=== PATIENT | male | born 2005 | race Caucasian/White ===

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

== ENCOUNTER 2023-02-04 03:03 | Emergency (ER) | payer OTHER, SELFPAY ==
[2023-02-04 01:30] VITALS: BP 147/76; PULSE 83; RESP 20; TEMP 36.8; O2SAT 97; BMI 26.3
[2023-02-04 01:37] LABS: Hematocrit 40.5 % (42.0-52.0); Hemoglobin 14.7 g/dl (14.0-18.0); Mean Corpuscular HGB Conc 36.3 g/dl (31.0-36.0); Mean Corpuscular Hemoglobin 31.2 pg (27.0-33.0); Mean Platelet Volume 10.3 fL (9.4-12.4); Platelet Count 253 X10*3/uL (160-400); Red Blood Count 4.71 X10*6/uL (4.60-5.80); Red Cell Distribution Width 11.2 % (11.0-16.0); White Blood Count 7.9 X10*3/uL (4.8-10.8)
--- NOTE | 2023-02-04 01:42 | MHC.EDTECH ---
PATIENT BLOOD DRAWN AND SENT TO LAB ,URINE SAMPLE COLLECTED AND LENT TO LAB .
[2023-02-04 01:44] LABS: Appearance Urine Clear; Color Urine Yellow; Glucose Urine UA Negative (Negative); Leukocyte Esterase Urine Negative (Negative); Nitrite Urine Negative (Negative); Urine Blood Negative (Negative); Urine Ketones Negative (Negative); Urine Protein Negative (Neg-Trace)
[2023-02-04 01:49] LABS: Bacteria Urine None Seen (None Seen); Hyaline Casts Urine 0-2 /LPF (0-2); RBC Urine 0-2 /HPF (0-2); Squamous Epithelial Cell Urine 0-2 /HPF (0-2); WBC Urine 0-5 /HPF (0-5)
[2023-02-04 01:52] LABS: Alanine Aminotransferase 24 U/L (0-40); Albumin Level 4.8 g/dL (3.5-5.0); Alkaline Phosphatase 39 U/L (39-117); Anion Gap 14 (12-20); Aspartate Amino Transferase 20 U/L (5-37); Bilirubin Total 0.3 mg/dL (0.0-1.0); Blood Urea Nitrogen 13 mg/dL (9-16); Calcium 10.3 mg/dL (8.4-10.2); Carbon Dioxide 26 mmol/L (22-29); Chloride 104 mmol/L (96-108); Creatinine Clr Calc Pharmacy 151.8; Estimated Glomerular Filt Rate > 60; Glucose Random 108 mg/dL (60-115); Lipase 15 U/L (8-78); Potassium 4.2 mmol/L (3.3-5.1); Sodium 140 mmol/L (135-145); Total Protein 7.8 g/dL (6.5-8.0)
[2023-02-04 03:22] VITALS: BP 143/74; PULSE 68; RESP 16; TEMP 37.1; O2SAT 98
--- NOTE | 2023-02-04 03:41 | ED.GENADULT ---
HPI - General Adult General Chief complaint: Headache Stated complaint: Nausea Time Seen by Provider: 02/04/23 03:27 Source: patient Mode of arrival: ambulatory Limitations: no limitations History of Present Illness HPI narrative: 17-year-old male with history of psoriasis presents with acute neck pain, dizziness, headache nausea. Patient coughed or sneezed any developed acute symptoms that were described as severe. Symptoms are worse with movement. He has never had symptoms like this before. The symptoms do not radiate. Denies any photo or phonophobia. The symptoms have improved on their own and are nearly gone at this time. There is no prior treatment. Mother believes the patient panicked. Related Data Previous Rx's Medication Instructions Recorded ketoconazole 2 % shampoo 1 appl topical 3XW #120 mL 07/14/21 terbinafine HCl 1 % topical cream 1 appl topical BID #30 grams 07/14/21 ondansetron 4 mg disintegrating 4 mg PO Q8H PRN nausea and 02/04/23 tablet vomiting #10 tabs Allergies Allergy/AdvReac Type Severity Reaction Status Date / Time acetaminophen Allergy Severe Vomiting Verified 03/01/22 23:35 Review of Systems Review of Systems: CONSTITUTIONAL: Denies weight loss, fever and chills. HEENT: Denies changes in vision and hearing. RESPIRATORY: Denies SOB and cough. CV: Denies palpitations no CP. GI: Denies abdominal pain, +nausea, -vomiting and diarrhea. : Denies dysuria and urinary frequency. MSK: + myalgia and joint pain. SKIN: Denies rash and pruritus. NEUROLOGICAL: + headache and - syncope. PSYCHIATRIC: Denies recent changes in mood. Denies anxiety and depression. All other ROS are negative unless in [facility]PI [facility] Social History Social History Advance Directives: No Physical Exam ED Vital Signs: Vital Signs - 24 hr 02/04/23 01:30 02/04/23 03:22 Temperature 98.3 F 98.7 F Pulse Rate 83 68 Respiratory Rate 20 16 Blood Pressure 147/76 H 143/74 H Pulse Oximetry 97 98 Oxygen Delivery Method Room Air Room Air BMI result Body Mass Index 26.3 GEN: Well developed, no acute distress, alert, oriented HEENT: Normocephalic, atraumatic, normal external ears, nose appears normal, no oropharyngeal edema or exudates Eyes: Normal to appearance Neck: Supple, no lymphadenopathy Respiratory: Talks in complete sentences, no respiratory distress, clear to auscultation bilaterally Cardiovascular: Regular rate and rhythm, no murmurs rubs or gallops Abdomen: Soft, nontender, nondistended, no guarding, no rebound Back: No CVA tenderness Extremities: No clubbing cyanosis or edema Neurologic: No focal neurologic deficits, cranial nerves 2-12 intact, strength is 5/5 bilaterally Skin: No rash Medical Decision Making Medical Decision Making [facility] Narrative: 17-year-old male with history of psoriasis presents with headache, neck pain, dizziness, nausea. Examination is benign. Doubt subarachnoid hemorrhage, subdural hematoma, meningitis. Is most likely acute muscle spasm which is already relieved itself. He will discharge the patient. I have reviewed his lab testing. There are no significant abnormalities. He can follow-up on an as-needed basis. Will take Motrin as needed. Differential diagnosis includes sprain, strain, spasm. There is no emergent indication for imaging at this time. Differential Diagnosis Differential Diagnoses: The differential diagnosis associated with the presentation includes (See above) Lab Data [facility] Lab Attestation statement: I reviewed the patient's lab results. 02/04/23 01:31 02/04/23 01:31 Labs: Lab Results 02/04/23 02/04/23 Range/Units 01:31 01:36 WBC 7.9 (4.8-10.8) X10*3/uL RBC 4.71 (4.60-5.80) X10*6/uL Hgb 14.7 (14.0-18.0) g/dl Hct 40.5 L (42.0-52.0) % MCV 86.0 (80.0-98.0) fL MCH 31.2 (27.0-33.0) pg MCHC 36.3 H (31.0-36.0) g/dl RDW 11.2 (11.0-16.0) % Plt Count 253 (160-400) X10*3/uL MPV 10.3 (9.4-12.4) fL Absolute Nucleated RBC 0.000 (0.0-0.012) X10*3/uL Nucleated RBC % (auto) 0.0 (0.0-0.2) /100WBC Sodium 140 (135-145) mmol/L Potassium 4.2 (3.3-5.1) mmol/L Chloride 104 (96-108) mmol/L Carbon Dioxide 26 (22-29) mmol/L Anion Gap 14 (12-20) BUN 13 (9-16) mg/dL Creatinine 0.91 (0.5-1.4) mg/dL Estim Creat Clear Calc 151.8 Estimated GFR > 60 Random Glucose 108 (60-115) mg/dL Calcium 10.3 H (8.4-10.2) mg/dL Total Bilirubin 0.3 (0.0-1.0) mg/dL AST 20 (5-37) U/L ALT 24 (0-40) U/L Alkaline Phosphatase 39 (39-117) U/L Total Protein 7.8 (6.5-8.0) g/dL Albumin 4.8 (3.5-5.0) g/dL Lipase 15 (8-78) U/L Urine Color Yellow Urine Appearance Clear Urine pH 7.0 (5.0-9.0) Ur Specific [place] 1.010 (1.005-1.025) Urine Protein Negative (Neg-Trace) mg/dL Urine Glucose (UA) Negative (Negative) mg/dL Urine Ketones Negative (Negative) mg/dL Urine Blood Negative (Negative) Urine Nitrite Negative (Negative) Ur Leukocyte Esterase Negative (Negative) Urine RBC 0-2 (0-2) /HPF Urine WBC 0-5 (0-5) /HPF Ur Squamous Epith Cells 0-2 (0-2) /HPF Urine Bacteria None Seen (None Seen) Hyaline Casts 0-2 (0-2) /LPF Prescription Management I considered prescription management with: Pain Medication Discharge Plan Discharge Clinical Impression: Headache, Acute neck pain, Nausea Patient Disposition: Home, Self-Care Instructions: Acute Headache (ED), Acute Nausea and Vomiting (ED), Neck Pain (ED) Prescriptions: New ondansetron 4 mg tablet,disintegrating 4 mg PO Q8H PRN (Reason: nausea and vomiting) Qty: 10 0RF No Action terbinafine HCl 1 % cream 1 appl topical BID Qty: 30 1RF ketoconazole 2 % shampoo 1 appl topical 3XW Qty: 120 0RF Referrals: Natalio Gao MD [Primary Care Provider] - 1 week (if needed)
== END 2023-02-04 04:20 | disposition home or self-care (01) ==
PROVIDERS: Emergency Provider Emergency Medicine; PCP Internal Medicine
DX: R51.9 Headache, unspecified (principal); M54.2 Cervicalgia; R11.0 Nausea
CPT/HCPCS: 36415; 80053; 81001; 83690; 85027; 99283; 99284

== ENCOUNTER 2023-02-24 22:50 | Emergency (ER) | payer OTHER, SELFPAY ==
--- NOTE | 2023-02-24 | ECG_ITS ---
Test Reason : CP Blood Pressure : / mmHG Vent. Rate : 086 BPM Atrial Rate : 086 BPM P-R Int : 142 ms QRS Dur : 082 ms QT Int : 366 ms P-R-T Axes : 069 075 031 degrees QTc Int : 437 ms Normal sinus rhythm Normal ECG No previous ECGs available Referred By: Generic ED Physician Electronically Signed By:MARIXA BANERJEE MD
[2023-02-24 22:58] VITALS: BP 133/80; PULSE 82; RESP 16; TEMP 36.9; O2SAT 98; BMI 25.7
== END 2023-02-25 02:31 | disposition left against medical advice (07) ==
PROVIDERS: Emergency Provider Emergency Medicine; PCP Internal Medicine
DX: R07.89 Other chest pain (principal)
CPT/HCPCS: 93005; 99283

== ENCOUNTER 2023-11-18 19:42 | Emergency (ER) | payer OTHER, SELFPAY ==
--- NOTE | ~2023-11-18 | XR_ITS ---
EXAMINATION: XR CHEST CLINICAL INFORMATION: Fever. COMPARISON: None available. TECHNIQUE: Frontal view of the chest was obtained. FINDINGS: The cardiomediastinal silhouette is normal. There is a medial right lung base opacity/infiltrate. The lungs are otherwise clear. There are no significant pleural effusions. The bony structures and soft tissues are unremarkable. XR/XR chest 1V IMPRESSION: Medial right lung base opacity/infiltrate. Pneumonia is suspected.
[2023-11-18 20:09] VITALS: BP 144/71; PULSE 141; RESP 20; TEMP 39.3; O2SAT 96; BMI 25.0
--- NOTE | 2023-11-18 20:11 | ED_ITS ---
HPI - URI/Sore Throat General Chief Complaint: Upper Respiratory Symptoms Stated Complaint: fever 2days/headache/nauseous Time Seen by Provider: 11/18/23 23:11 Related Data Previous Rx's ?Medication ?Instructions ?Recorded ketoconazole 2 % shampoo 1 appl topical 3XW #120 mL 07/14/21 terbinafine HCl 1 % topical cream 1 appl topical BID #30 grams 07/14/21 ondansetron 4 mg disintegrating 4 mg PO Q8H PRN nausea and 02/04/23 tablet vomiting #10 tabs azithromycin 250 mg tablet 250 mg PO DAILY 4 days #4 tabs 11/19/23 benzonatate 100 mg capsule 100 mg PO TID PRN cough #14 caps 11/19/23 cefuroxime axetil 500 mg tablet 500 mg PO BID #14 tabs 11/19/23 ibuprofen 600 mg tablet 600 mg PO QID PRN fever or pain 11/19/23 #20 tabs Allergies Allergy/AdvReac Type Severity Reaction Status Date / Time acetaminophen Allergy Severe Vomiting Verified 11/18/23 20:14 [facility] Social History Social History Smoked in Last 30 Days: No Use of substances other than those prescribed or required for medical reasons: No Advance Directives: No Advance Directives Information Provided: Yes Do you have a plan to hurt others: No Plan Physical Exam 2 Vital Signs: Vital Signs: Last Vital Signs Temp 98.3 F 11/19/23 02:32 Pulse 127 H 11/19/23 02:32 Resp 18 11/19/23 02:32 BP 122/61 11/19/23 02:32 Pulse Ox 96 11/19/23 02:32 O2 Del Method Room Air 11/19/23 02:32 BMI result Body Mass Index 25.0 Course Course Course Narrative: This is a Rapid Medical Examination (RME) performed by Diane Toledo PA-C in triage. Full HPI, ROS, assessment and treatment plan per primary provider in the Main ED. 18 yo male with history of HTN presenting to the ER for evaluation of 4 days of fever (101-103), headaches, nausea, poor PO intake. allergic to tylenol so has been taking ibuprofen q4 hours with intermittent relief. brother was sick with mono last week. febrile to 102.8 in triage, tachycardic to 140. speaking in complete sentences, no distress. slight dry cough. Plan: labs, monospot, covid and strep Reevaluation(s) Reevaluation #1: see Dr. Connors note as she was primary provider for this encounter Medications Administered Discontinued Medications Generic Name Dose Route Start Last Admin Trade Name Freq PRN Reason Stop Dose Admin Azithromycin 500 mg 11/19/23 00:50 11/19/23 01:25 Azithromycin 500 Mg Tablet PO 11/19/23 00:51 500 mg ONCE ONE Administration Benzonatate 100 mg 11/18/23 23:30 11/18/23 23:48 Benzonatate 100 Mg Capsule PO 11/18/23 23:31 100 mg ONCE ONE Administration Cefuroxime Axetil 500 mg 11/19/23 00:50 11/19/23 01:25 Cefuroxime Axetil 500 Mg Tablet PO 11/19/23 00:51 500 mg ONCE ONE Administration Ibuprofen 600 mg 11/18/23 23:28 11/18/23 23:48 Ibuprofen 600 Mg Tablet PO 11/18/23 23:29 600 mg ONCE ONE Administration Medical Decision Making Lab Data 11/18/23 21:05 11/18/23 21:05 Labs: Lab Results 11/18/23 11/18/23 Range/Units 21:05 23:42 WBC 7.4 (4.8-10.8) X10*3/uL RBC 4.69 (4.60-5.80) X10*6/uL Hgb 14.5 (14.0-18.0) g/dl Hct 40.8 L (42.0-52.0) % MCV 87.0 (80.0-98.0) fL MCH 30.9 (27.0-33.0) pg MCHC 35.5 (31.0-36.0) g/dl RDW 11.6 (11.0-16.0) % Plt Count 207 (160-400) X10*3/uL MPV 10.1 (9.4-12.4) fL Immature Gran % (Auto) 0.5 H (0.0-0.4) % Neut % (Auto) 83.2 H (45-73) % Lymph % (Auto) 7.3 L (20-40) % [place] % (Auto) 8.9 (2-11) % Eos % (Auto) 0.0 (0-4) % Baso % (Auto) 0.1 (0-2) % Lymph # (Auto) 0.5 L (1.2-4.9) X10*3/uL [place] # (Auto) 0.7 (0.1-1.2) X10*3/uL Eos # (Auto) 0.0 (0.0-0.4) X10*3/uL Baso # (Auto) 0.0 (0.0-0.2) X10*3/uL Abs Immat Gran (auto) 0.04 H (0.00-0.03) X10*3/uL Absolute Neuts (auto) 6.2 (2.0-8.3) x10*3/uL Absolute Nucleated RBC 0.000 (0.0-0.012) X10*3/uL Nucleated RBC % (auto) 0.0 (0.0-0.2) /100WBC Sodium 138 (135-145) mmol/L Potassium 3.8 (3.3-5.1) mmol/L Chloride 104 (96-108) mmol/L Carbon Dioxide 25 (22-29) mmol/L Anion Gap 13 (12-20) BUN 10 (9-16) mg/dL Creatinine 0.95 (0.5-1.4) mg/dL Estim Creat Clear Calc 148.2 Estimated GFR > 60 Random Glucose 116 H (60-115) mg/dL Calcium 9.7 (8.4-10.2) mg/dL Magnesium 1.9 (1.6-2.6) mg/dL Total Bilirubin 0.5 (0.0-1.0) mg/dL Direct Bilirubin 0.2 (0.0-0.5) mg/dL AST 23 (5-37) U/L ALT 31 (0-40) U/L Alkaline Phosphatase 33 L (39-117) U/L Total Protein 7.6 (6.5-8.0) g/dL Albumin 4.5 (3.5-5.0) g/dL Urine Color Yellow Urine Appearance Clear Urine pH 6.0 (5.0-9.0) Ur Specific [place] 1.025 (1.005-1.025) Urine Protein Trace (Neg-Trace) mg/dL Urine Glucose (UA) Negative (Negative) mg/dL Urine Ketones 15 (Negative) mg/dL Urine Blood Negative (Negative) Urine Nitrite Negative (Negative) Ur Leukocyte Esterase Negative (Negative) COVID-19 ([facility]) Negative (Negative) COVID-19 Clin Com See Note Monoscreen Negative (Negative) S. pyogenes GrpA ASHLEY Negative (Negative) Discharge Plan Discharge Clinical Impression: Pneumonia Patient Disposition: Home, Self-Care Instructions: Pneumonia (ED) Additional Instructions: Please follow-up with your primary care physician tomorrow. If you have any worsening or new symptoms, please return to the emergency room or call 911 Prescriptions: New cefuroxime axetil 500 mg tablet 500 mg PO BID Qty: 14 0RF azithromycin 250 mg tablet 250 mg PO DAILY 4 Days Qty: 4 0RF Rx Instructions: start on day 2 of therapy benzonatate 100 mg capsule 100 mg PO TID PRN (Reason: cough) Qty: 14 0RF ibuprofen 600 mg tablet 600 mg PO QID PRN (Reason: fever or pain) Qty: 20 0RF No Action terbinafine HCl 1 % cream 1 appl topical BID Qty: 30 1RF ketoconazole 2 % shampoo 1 appl topical 3XW Qty: 120 0RF ondansetron 4 mg tablet,disintegrating 4 mg PO Q8H PRN (Reason: nausea and vomiting) Qty: 10 0RF Interventions: ED Discharge Assessment Last Done: 11/19/23 02:32 Discharge Date/Time: 11/19/23 02:35 Print Language: Citizen Of [place]
[2023-11-18 21:11] LABS: MANUAL DIFF FLAG NO
[2023-11-18 21:12] LABS: Basophils Percent Auto 0.1 % (0-2); Hematocrit 40.8 % (42.0-52.0); Hemoglobin 14.5 g/dl (14.0-18.0); Imm Gran Abs Auto 0.04 X10*3/uL (0.00-0.03); Imm Gran Pct Auto 0.5 % (0.0-0.4); Lymphocytes Absolute Auto 0.5 X10*3/uL (1.2-4.9); Lymphocytes Percent Auto 7.3 % (20-40); Mean Corpuscular HGB Conc 35.5 g/dl (31.0-36.0); Mean Corpuscular Hemoglobin 30.9 pg (27.0-33.0); Mean Platelet Volume 10.1 fL (9.4-12.4); Monocytes Absolute Auto 0.7 X10*3/uL (0.1-1.2); Monocytes Percent Auto 8.9 % (2-11); Neutrophils Absolute Auto 6.2 x10*3/uL (2.0-8.3); Neutrophils Percent Auto 83.2 % (45-73); Platelet Count 207 X10*3/uL (160-400); Red Blood Count 4.69 X10*6/uL (4.60-5.80); Red Cell Distribution Width 11.6 % (11.0-16.0); White Blood Count 7.4 X10*3/uL (4.8-10.8)
[2023-11-18 21:21] LABS: IDNOW Serial# 08D9AD1C; Strep A Nucleic Acid Negative (Negative)
[2023-11-18 21:24] LABS: COVID-19 Test Negative (Negative); IDNOW Serial# 152EDE1D
[2023-11-18 21:31] LABS: Alanine Aminotransferase 31 U/L (0-40); Albumin Level 4.5 g/dL (3.5-5.0); Alkaline Phosphatase 33 U/L (39-117); Anion Gap 13 (12-20); Aspartate Amino Transferase 23 U/L (5-37); Bilirubin Direct 0.2 mg/dL (0.0-0.5); Bilirubin Total 0.5 mg/dL (0.0-1.0); Blood Urea Nitrogen 10 mg/dL (9-16); Calcium 9.7 mg/dL (8.4-10.2); Carbon Dioxide 25 mmol/L (22-29); Chloride 104 mmol/L (96-108); Creatinine Clr Calc Pharmacy 148.2; Estimated Glomerular Filt Rate > 60; Glucose Random 116 mg/dL (60-115); Magnesium 1.9 mg/dL (1.6-2.6); Monotest Negative (Negative); Potassium 3.8 mmol/L (3.3-5.1); Sodium 138 mmol/L (135-145); Total Protein 7.6 g/dL (6.5-8.0)
[2023-11-18 21:54] VITALS: BP 141/84; PULSE 133; RESP 20; TEMP 39; O2SAT 96
[2023-11-18 23:12] VITALS: TEMP 39.6
--- NOTE | 2023-11-18 23:27 | ED.URI ---
HPI - URI/Sore Throat General Chief Complaint: Upper Respiratory Symptoms Stated Complaint: fever 2days/headache/nauseous Time Seen by Provider: 11/18/23 23:11 Source: patient Mode of arrival: ambulatory Limitations: no limitations History of Present Illness ED Provider: Dr. Gema Connors HPI Narrative: Patient comes to the emergency room complaining of cough, headache, nausea, body aches. Patient also states that he has been having fever at home, taking ibuprofen every 6 hours without any significant relief. Patient states that his brother recently tested positive for mononucleosis and had similar symptoms. Related Data Previous Rx's ?Medication ?Instructions ?Recorded ketoconazole 2 % shampoo 1 appl topical 3XW #120 mL 07/14/21 terbinafine HCl 1 % topical cream 1 appl topical BID #30 grams 07/14/21 ondansetron 4 mg disintegrating 4 mg PO Q8H PRN nausea and 02/04/23 tablet vomiting #10 tabs azithromycin 250 mg tablet 250 mg PO DAILY 4 days #4 tabs 11/19/23 benzonatate 100 mg capsule 100 mg PO TID PRN cough #14 caps 11/19/23 cefuroxime axetil 500 mg tablet 500 mg PO BID #14 tabs 11/19/23 ibuprofen 600 mg tablet 600 mg PO QID PRN fever or pain 11/19/23 #20 tabs Allergies Allergy/AdvReac Type Severity Reaction Status Date / Time acetaminophen Allergy Severe Vomiting Verified 11/18/23 20:14 Review of Systems Review of Systems: Constitutional : No Weight loss, No Fever, No Chills, No Night Sweats, No Fatigue, No Malaise ENT/Mouth : No Hearing loss, No Ear Pain, No Nasal Congestion, No Sinus Pain, No Hoarseness, complaining of sore throat, No Rhinorrhea, No Swallowing Difficulty Eyes: No Eye Pain, No Swelling, No Redness, No Foreign Body, No Discharge, No Vision Changes Cardiovascular : No Chest Pain, No SOB, No Dyspnea on Exertion, No Orthopnea, No Edema, No Palpitations Respiratory : Complaining of cough, no wheezing or dyspnea Gastrointestinal : No Nausea, No Vomiting, No Diarrhea, No Constipation, No abdominal Pain, No Hematochezia, No Melena Genitourinary : no irregular bleeding, No Dysuria, No Urinary Frequency, No Hematuria, No Urinary Incontinence, No Urgency, No Flank Pain, No Urinary Flow Changes, No Hesitancy Musculoskeletal : No joint pain, No Myalgias, No Joint Swelling Skin : No Skin Lesions, No rash Neuro : No Weakness, No Numbness, No Paresthesias, No Loss of Consciousness, No Dizziness, No Headache Psych : No Anxiety/Panic, No Depression, No SI/HI/AH/VH, No Social Issues, Heme/Lymph: No Bruising, No Bleeding,No Lymphadenopathy Endocrine : No Polyuria, No Polydipsia, No Temperature Intolerance [facility] Social History Social History Advance Directives: No Advance Directives Information Provided: Yes Do you have a plan to hurt others: No Plan Physical Exam Vital Signs: Vital Signs: Last Vital Signs Temp 101.2 F H 11/19/23 00:42 Pulse 133 H 11/18/23 23:59 Resp 16 11/18/23 23:59 BP 130/73 11/18/23 23:59 Pulse Ox 97 11/18/23 23:59 O2 Del Method Room Air 11/18/23 23:59 BMI result Body Mass Index 25.0 Const: Other: Appearance: Alert. Oriented X3. No acute distress. Eyes: Pupils equal, round and reactive to light. ENT: Erythematous oropharynx with no patches or abscesses. Neck: Normal inspection. Neck supple. No lymph nodes noted. No crepitus CVS: Normal heart rate and rhythm. Pulses normal. Normal S1 and S2 Respiratory: No respiratory distress. Actively coughing, Breath sounds normal. No Wheezing. No rales Abdomen: Soft and nontender. No rigidity. No distention. Skin: Skin warm and dry. Normal skin color. Normal skin turgor. Extremities: No lower extremity edema. No Lacerations. No Rash Neuro: Oriented X 3. No motor deficit. No sensory deficit. Moving all extremities. No slurred speech. CN 2 through 12 grossly intact Psych: calm, cooperative, normal affect Course Course Course Narrative: -patient was given p.o. ibuprofen. According to patient's mother who is at bedside, patient is ?allergic? to acetaminophen causing vomiting. -oxygen saturation 96%, heart rate 133, fever of 103.3 -my interpretation of chest x-ray, possible early right lower lobe infiltrate Medications Administered Discontinued Medications Generic Name Dose Route Start Last Admin Trade Name Freq PRN Reason Stop Dose Admin Benzonatate 100 mg 11/18/23 23:30 11/18/23 23:48 Benzonatate 100 Mg Capsule PO 11/18/23 23:31 100 mg ONCE ONE Administration Ibuprofen 600 mg 11/18/23 23:28 11/18/23 23:48 Ibuprofen 600 Mg Tablet PO 11/18/23 23:29 600 mg ONCE ONE Administration Medical Decision Making Medical Decision Making [facility] Narrative: -chest x-ray confirms pneumonia in the right side. -patient given cefuroxime and azithromycin. -patient is still has a fever but doing much better, now 101F -patient's oxygen saturation remains at 97% even with walking around his room, no O2 desaturation Differential Diagnosis Differential Diagnoses: The differential diagnosis associated with the presentation includes (Pneumonia, COVID, influenza, mononucleosis, strep pharyngitis) Admission/Observation Consideration of admission/observation: Escalation of care including admission/observation considered (Given patient's symptoms and labs and vitals, observation considered) Lab Data [facility] Lab Attestation statement: I reviewed the patient's lab results. 11/18/23 21:05 11/18/23 21:05 Labs: Lab Results 11/18/23 11/18/23 Range/Units 21:05 23:42 WBC 7.4 (4.8-10.8) X10*3/uL RBC 4.69 (4.60-5.80) X10*6/uL Hgb 14.5 (14.0-18.0) g/dl Hct 40.8 L (42.0-52.0) % MCV 87.0 (80.0-98.0) fL MCH 30.9 (27.0-33.0) pg MCHC 35.5 (31.0-36.0) g/dl RDW 11.6 (11.0-16.0) % Plt Count 207 (160-400) X10*3/uL MPV 10.1 (9.4-12.4) fL Immature Gran % (Auto) 0.5 H (0.0-0.4) % Neut % (Auto) 83.2 H (45-73) % Lymph % (Auto) 7.3 L (20-40) % [place] % (Auto) 8.9 (2-11) % Eos % (Auto) 0.0 (0-4) % Baso % (Auto) 0.1 (0-2) % Lymph # (Auto) 0.5 L (1.2-4.9) X10*3/uL [place] # (Auto) 0.7 (0.1-1.2) X10*3/uL Eos # (Auto) 0.0 (0.0-0.4) X10*3/uL Baso # (Auto) 0.0 (0.0-0.2) X10*3/uL Abs Immat Gran (auto) 0.04 H (0.00-0.03) X10*3/uL Absolute Neuts (auto) 6.2 (2.0-8.3) x10*3/uL Absolute Nucleated RBC 0.000 (0.0-0.012) X10*3/uL Nucleated RBC % (auto) 0.0 (0.0-0.2) /100WBC Sodium 138 (135-145) mmol/L Potassium 3.8 (3.3-5.1) mmol/L Chloride 104 (96-108) mmol/L Carbon Dioxide 25 (22-29) mmol/L Anion Gap 13 (12-20) BUN 10 (9-16) mg/dL Creatinine 0.95 (0.5-1.4) mg/dL Estim Creat Clear Calc 148.2 Estimated GFR > 60 Random Glucose 116 H (60-115) mg/dL Calcium 9.7 (8.4-10.2) mg/dL Magnesium 1.9 (1.6-2.6) mg/dL Total Bilirubin 0.5 (0.0-1.0) mg/dL Direct Bilirubin 0.2 (0.0-0.5) mg/dL AST 23 (5-37) U/L ALT 31 (0-40) U/L Alkaline Phosphatase 33 L (39-117) U/L Total Protein 7.6 (6.5-8.0) g/dL Albumin 4.5 (3.5-5.0) g/dL Urine Color Yellow Urine Appearance Clear Urine pH 6.0 (5.0-9.0) Ur Specific [place] 1.025 (1.005-1.025) Urine Protein Trace (Neg-Trace) mg/dL Urine Glucose (UA) Negative (Negative) mg/dL Urine Ketones 15 (Negative) mg/dL Urine Blood Negative (Negative) Urine Nitrite Negative (Negative) Ur Leukocyte Esterase Negative (Negative) COVID-19 ([facility]) Negative (Negative) COVID-19 Clin Com See Note Monoscreen Negative (Negative) S. pyogenes GrpA ASHLEY Negative (Negative) Critical Care Time Critical Care Time Critical Care Time: Yes Total Critical Care Time: 30 Attestation: I have personally provided critical care time. Time includes review of lab data, radiology results, discussion with consultants, and monitoring for potential decompensation. Intervention performed as documented. Discharge Plan Discharge Clinical Impression: Pneumonia Patient Disposition: Home, Self-Care Instructions: Pneumonia (ED) Additional Instructions: Please follow-up with your primary care physician tomorrow. If you have any worsening or new symptoms, please return to the emergency room or call 911 Prescriptions: New cefuroxime axetil 500 mg tablet 500 mg PO BID Qty: 14 0RF azithromycin 250 mg tablet 250 mg PO DAILY 4 Days Qty: 4 0RF Rx Instructions: start on day 2 of therapy benzonatate 100 mg capsule 100 mg PO TID PRN (Reason: cough) Qty: 14 0RF ibuprofen 600 mg tablet 600 mg PO QID PRN (Reason: fever or pain) Qty: 20 0RF No Action terbinafine HCl 1 % cream 1 appl topical BID Qty: 30 1RF ketoconazole 2 % shampoo 1 appl topical 3XW Qty: 120 0RF ondansetron 4 mg tablet,disintegrating 4 mg PO Q8H PRN (Reason: nausea and vomiting) Qty: 10 0RF Print Language: [place]
[2023-11-18] MEDS: Benzonatate 100 MG CAPSULE PO (23:48)
[2023-11-18] MEDS: Ibuprofen 600 MG TABLET PO (23:48)
[2023-11-18 23:51] LABS: Appearance Urine Clear; Color Urine Yellow; Glucose Urine UA Negative (Negative); Leukocyte Esterase Urine Negative (Negative); Nitrite Urine Negative (Negative); Specific Gravity - Urine 1.025 (1.005-1.025); Urine Blood Negative (Negative); Urine Ketones 15 mg/dL (Negative); Urine Protein Trace mg/dL (Neg-Trace)
[2023-11-18 23:59] VITALS: BP 130/73; PULSE 133; RESP 16; O2SAT 97
[2023-11-19 00:42] VITALS: TEMP 38.4
[2023-11-19] MEDS: cefuroxime axetiL 500 MG TABLET PO (01:25)
[2023-11-19] MEDS: Azithromycin 500 MG TABLET PO (01:25)
[2023-11-19 01:28] VITALS: BP 133/69; PULSE 145; RESP 20; TEMP 39.6; O2SAT 96
--- NOTE | 2023-11-19 01:33 | PC.NURSE ---
at time of d/c pt fever back up to 103.1F and sinus tachy on monitor. MD made aware. pt medicated per jul with antibiotics. ice packs applied to patient per MD order and to recheck temp.
[2023-11-19 01:46] VITALS: TEMP 39.4
[2023-11-19 02:15] VITALS: BP 122/61; PULSE 127; RESP 18; TEMP 36.8; O2SAT 95
[2023-11-19 02:31] VITALS: O2SAT 96
[2023-11-19 02:32] VITALS: BP 122/61; PULSE 127; RESP 18; TEMP 36.8; O2SAT 96
== END 2023-11-19 02:35 | disposition home or self-care (01) ==
PROVIDERS: Physician Assistant; Emergency Provider Emergency Medicine; PCP Internal Medicine
DX: J18.9 Pneumonia, unspecified organism (principal); R50.9 Fever, unspecified; R51.9 Headache, unspecified; M79.10 Myalgia, unspecified site; R11.0 Nausea; Z11.52 Encounter for screening for COVID-19; Z79.899 Other long term (current) drug therapy
CPT/HCPCS: 71045; 80048; 80076; 81003; 83735; 85025; 86308; 87635; 87651; 99284; 99285